=== PATIENT | female | born 1970 | race Caucasian/White ===

== ENCOUNTER 2016-12-19 12:41 | Emergency (ER) | payer OTHER ==
[~2016-12-19] VITALS: Ht 160 cm; Wt 78.5 kg
[~2016-12-19 12:41] MED LIST: MOTRIN800 MG PO; PROVERA,CYCRIN5 MG PO
[2016-12-19 14:44] LABS: HEMATOCRIT 40.6 % (36.0-46.0); MCH 32.4 PG (29.0-34.0); MCHC 35.7 G/DL (30.0-36.0); MCV 90.8 FL (83-99); MEAN PLAT.VOLUME 9.4 uM^3 (9.5-12.4); PLATELET COUNT 254 K/uL (156-360); RBC DIS.WIDTH-CV 13.3 % (11.8-14.6); RBC DIS.WIDTH-SD 43.3 % (39-53); RED BLOOD COUNT 4.47 M/uL (3.80-5.20); WHITE BLOOD COUNT 7.8 K/uL (4.1-10.2)
[2016-12-19 14:52] LABS: CHLORIDE 108 mEq/L (99-109); POTASSIUM 3.6 mEq/L (3.7-5.4); SODIUM 140 mEq/L (136-147)
[2016-12-19 14:54] LABS: GLUCOSE 105 mg/dL (70-99)
[2016-12-19 14:55] LABS: ANION GAP 11 MEQ/L (2-14)
[2016-12-19 14:56] LABS: TOTAL BILIRUBIN 0.3 mg/dL (0.0-1.0)
[2016-12-19 14:58] LABS: ALKALINE PHOSPHATASE 93 IU/L (3-129); GFR ESTIMATE (CALCULATED) > 59 mL/min/
[2016-12-19 14:59] LABS: UREA NITROGEN (BUN) 9 mg/dL (9-23)
[2016-12-19 15:07] LABS: QUANTITATIVE HCG < 4.0 MIU/ML
[2016-12-19 15:54] LABS: ADD MIUA? NO; BILIRUBIN NEGATIVE; BLOOD NEGATIVE; COLOR YELLOW ((YELLOW)); GLUCOSE (STRIP) NEGATIVE; KETONES NEGATIVE; LEUKOCYTES NEGATIVE; NITRITE NEGATIVE; PROTEIN (STRIP) NEGATIVE; UCUL ADDED? NO; UROBILINOGEN 0.2 MG/DL (0.2-1.0)
[2016-12-19] MEDS ORDERED: BENTYL20 MG PO (16:50)
[2016-12-19 16:58] VITALS: BP 112/78
== END 2016-12-19 17:00 | disposition home or self-care (01) ==
LOC: RME 12:41 → EME 12:41 → RME 17:00
DX: R10.11 Right upper quadrant pain (principal); K44.9 Diaphragmatic hernia without obstruction or gangrene; G89.29 Other chronic pain; F17.200 Nicotine dependence, unspecified, uncomplicated
CPT/HCPCS: 76705; 80053; 81003; 84702; 85027; 99281; 99285; J1885